=== PATIENT | female | born 1975 | race Caucasian/White ===

== ENCOUNTER 2017-05-12 09:48 | Emergency (ER) | payer OTHER ==
--- NOTE | 2017-05-12 10:17 | Emergency Department Record ---
History of Present Illness - General Chief Complaint: Fever Stated Complaint: FEVER POST OP Time Seen by Provider: 05/12/17 10:07 Source: Patient, RN notes reviewed Mode of Arrival: Wheelchair - History of Present Illness Initial Comments: lower abd pain and fever and feels nauseated and she had hysterectomy 6 days ago at [facility] by Dr. Carvalho. She called the office and they recommend she go to [facility]'s Ed and she felt like she was going to vomit and she came here. Carlos with her. PMH asthma Onset/Timin -: Hour(s) Maximum Temperature: 99.5 F Temperature Source: Oral Context: Recent procedure Associated Symptoms: Chills Treatments Prior to Arrival: Acetaminophen, Ibuprofen Treatment Prior to Arrival Comment:: 600mg motrin 0800 - Related Data Home Medications Medication Instructions Recorded Confirmed Last Taken Budesonide/Formoterol Fumarate 10.2 gm IH BID 04/13/15 05/12/17 05/12/17 [Symbicort 80-4.5 Mcg Inhaler] Montelukast Sodium [Singulair] 10 mg PO QHS 04/13/15 05/12/17 05/12/17 Hydrocodone/Acetaminophen [[place] 1 tab PO ASDIR PRN 05/12/17 05/12/17 05/12/17 04:00 5-325 Tablet] Allergies Allergy/AdvReac Type Severity Reaction Status Date / Time No Known Drug Allergies Allergy Verified 05/12/17 09:54 Travel Screening - Travel/Exposure Within Last 30 Days Have you traveled within the last 30 days?: No - Travel/Exposure Within Last Year Have you traveled outside the [place] in the last year?: No - Additonal Travel Details Have you been exposed to anyone with a communicable illness?: No - Travel Symptoms Symptom Screening: None Review of Systems Reviewed: No additional complaints except as noted below Constitutional: Reports: As per HPI, Fever. Denies: Chills, Malaise, Night sweats, Weakness, Weight change Eyes: Reports: As per HPI. Denies: Eye discharge, Eye pain, Photophobia, Vision change ENT: Reports: As per HPI. Denies: Congestion, Dental pain, Ear pain, Epistaxis , Hearing loss, Throat pain Respiratory: Reports: As per HPI. Denies: Cough, Dyspnea, Hemoptysis, Stridor, Wheezes Cardiovascular: Reports: As per HPI. Denies: Arrhythmia, Chest pain, Dyspnea on exertion, Edema, Murmurs, Orthopnea, Palpitations, Paroxysmal nocturnal dyspnea, Rheumatic Fever, Syncope Endocrine: Reports: As per HPI. Denies: Fatigue, Heat or cold intolerance, Polydipsia, Polyuria Gastrointestinal: Reports: As per HPI, Abdominal pain, Nausea. Denies: Constipation, Diarrhea, Hematemesis, Hematochezia, Melena, Vomiting Genitourinary: Reports: As per HPI. Denies: Abnormal menses, Discharge, Dyspareunia, Dysuria, Frequency, Hematuria, Incontinence, Retention, Urgency Musculoskeletal: Reports: As per HPI. Denies: Arthralgia, Back pain, Gout, Joint swelling, Myalgia, Neck pain Skin: Reports: As per HPI. Denies: Bruising, Change in color, Change in hair/ nails, Lesions, Pruritus, Rash Neurological: Reports: As per HPI. Denies: Abnormal gait, Confusion, Headache, Numbness, Paresthesias, Seizure, Tingling, Tremors, Vertigo, Weakness Psychiatric: Reports: As per HPI. Denies: Anxiety, Auditory hallucinations, Depression, Homicidal thoughts, Suicidal thoughts, Visual hallucinations Hematological/Lymphatic: Reports: As per HPI. Denies: Anemia, Blood Clots, Easy bleeding, Easy bruising, Swollen glands Past Medical History - SOCIAL HISTORY Smoking Status: Never smoker Alcohol Use: Rare Drug Use: None - RESPIRATORY Hx Respiratory Disorders: Yes Hx Asthma: Yes - CARDIOVASCULAR Hx Cardio Disorders: No - NEURO Hx Neuro Disorders: No - GI Hx GI Disorders: No - Hx Genitourinary Disorders: No - ENDOCRINE Hx Endocrine Disorders: No - MUSCULOSKELETAL Hx Musculoskeletal Disorders: No - PSYCH Hx Psych Problems: No - HEMATOLOGY/ONCOLOGY Hx Hematology/Oncology Disorders: No Family Medical History Any Significant Family History?: No Physical Exam - General General Appearance: Alert, Oriented x3, Cooperative, Mild distress - Head Head exam: Normal inspection - Eye Eye exam: Normal appearance, PERRL Pupils: Normal accommodation - ENT ENT exam: Normal exam, Mucous membranes moist, Normal external ear exam, Normal orophraynx, TM's normal bilaterally Ear exam: Normal external inspection. negative: External canal tenderness Nasal Exam: Normal inspection. negative: Discharge, Sinus tenderness Mouth exam: Normal external inspection, Tongue normal Teeth exam: Normal inspection. negative: Dental caries Throat exam: Normal inspection. negative: Tonsillar erythema, Tonsillar exudate - Neck Neck exam: Normal inspection, Full ROM. negative: Tenderness - Respiratory Respiratory exam: Normal lung sounds bilaterally. negative: Respiratory distress - Cardiovascular Cardiovascular Exam: Regular rate, Normal rhythm, Normal heart sounds - GI/Abdominal GI/Abdominal exam: Soft, Normal bowel sounds, Guarding, Tenderness (right lower quad pain and soft ). negative: Distended, Rebound, Rigid - Rectal Rectal exam: Deferred - exam: Deferred - Extremities Extremities exam: Normal inspection, Full ROM, Normal capillary refill. negative: Tenderness - Back Back exam: Reports: Normal inspection, Full ROM. Denies: Muscle spasm, Rash noted, Tenderness - Neurological Neurological exam: Alert, Normal gait, Oriented X3, Reflexes normal - Psychiatric Psychiatric exam: Normal affect, Normal mood - Skin Skin exam: Dry, Intact, Normal color, Warm Course Vital Signs 05/12/17 09:56 Temperature 101.4 F H Pulse Rate 96 H Respiratory 18 Rate Blood Pressure 128/69 Pulse Ox 969 H patient refused pelvix exam and I explained to her that is way we look for infection. Risks discussed and she said no. Medical Decision Making - Data Complexity MDM Data: Labs Ordered and/or Reviewed, X-Ray Ordered and/or Reviewed (CT showing stranding around the vaginal cuff) - Lab Data Result diagrams: 05/12/17 11:26 05/12/17 11:26 Disposition Clinical Impression: Abdominal pain Qualifiers: Abdominal location: right lower quadrant Qualified Code(s): R10.31 - Right lower quadrant pain Fever Qualifiers: Fever type: unspecified Qualified Code(s): R50.9 - Fever, unspecified Disposition: Home, Self-Care Forms: Patient Portal Access Quality - Quality Measures Quality Measures: N/A - Blood Pressure Screening Blood Pressure Classification: Pre-Hypertensive BP Reading Systolic Measurement: 128 Diastolic Measurement: 69 Screening for High Blood Pressure: < Pre-Hypertensive BP, F/U Documented > [ G8950] Pre-Hypertensive Follow-up Interventions: Follow-up with rescreen every year., Referral to alternative/primary care provider. Not Eligible Reason: Urgent or Emergent Situation
[2017-05-12] MEDS: ONDANSETRON HCL IV 4 MG/2 ML VIAL IV ONE (10:43)
[2017-05-12] MEDS: 0.9 % SODIUM CHLORIDE 1,000 ML BAG IV ONE (10:46)
[2017-05-12] MEDS: ACETAMINOPHEN 500 MG TABLET PO ONE (11:11)
[2017-05-12 11:32] LABS: HEMATOCRIT 41.7 % (35.0-47.0); HEMOGLOBIN 14.6 gm/dl (11.6-16.0); MEAN CELL VOLUME 89.5 fl (81-97); MEAN CORPUSCULAR HEMOGLOBIN 31.3 pg (27-33); MEAN PLATELET VOLUME 10.1 fl (7.4-10.4); PLATELET COUNT 242 K/uL (130-400); RED BLOOD COUNT 4.66 M/uL (3.80-5.40); RED CELL DISTRIBUTION WIDTH 11.6 % (11.5-14.5)
[2017-05-12 11:35] LABS: WHITE BLOOD COUNT W/O DIFF 22.1 K/uL (4.2-12.2)
[2017-05-12 11:43] LABS: PLATELET ESTIMATE NORMAL (NORMAL)
[2017-05-12 11:45] LABS: ALBUMIN 4.1 gm/dL (3.5-5.0); ALKALINE PHOSPHATASE 61 U/L (38-126); ALT/SGPT 40 U/L (9-52); ANION GAP 11.9 (7-16); AST/SGOT 23 U/L (14-36); BILIRUBIN,TOTAL 1.26 mg/dL (0.2-1.3); BLOOD UREA NITROGEN 17 mg/dL (7-17); CARBON DIOXIDE 24.1 mmol/L (22-30); CREATININE 0.6 mg/dL (0.52-1.04); EST GLOMERULAR FILTRATION RATE > 60 ml/min; GLUCOSE,RANDOM 105 mg/dL (70-110)
[2017-05-12 12:37] LABS: URINE APPEARANCE CLEAR; URINE BILIRUBIN NEGATIVE (NEGATIVE); URINE BLOOD SMALL (NEGATIVE); URINE COLOR YELLOW; URINE GLUCOSE (UA) NEGATIVE (NEGATIVE); URINE KETONE NEGATIVE (NEGATIVE); URINE LEUKOCYTE ESTERASE SMALL (NEGATIVE); URINE NITRITE NEGATIVE (NEGATIVE); URINE PROTEIN NEGATIVE (NEGATIVE); URINE UROBILINOGEN 0.2 E.U./dL (0.20 - 1.00)
[2017-05-12 12:47] LABS: URINE BACTERIA FEW
[2017-05-12] MEDS: KETOROLAC 30 MG/ML VIAL IVP ONE (13:16)
[2017-05-12] MEDS: ERTAPENEM SODIUM 1 G in 0.9 % SODIUM CHLORIDE 100ML 100 ML IVPB ONE (13:36)
--- NOTE | 2017-05-12 14:00 | Emergency Department Record ---
History of Present Illness - General Chief Complaint: Fever Stated Complaint: FEVER POST OP Time Seen by Provider: 05/12/17 10:07 Source: Patient, RN notes reviewed Mode of Arrival: Wheelchair - History of Present Illness Onset/Timin -: Hour(s) Maximum Temperature: 99.5 F Temperature Source: Oral Context: Recent procedure Associated Symptoms: Chills Treatments Prior to Arrival: Acetaminophen, Ibuprofen Treatment Prior to Arrival Comment:: 600mg motrin 0800 - Related Data Home Medications Medication Instructions Recorded Confirmed Last Taken Budesonide/Formoterol Fumarate 10.2 gm IH BID 04/13/15 05/12/17 05/12/17 [Symbicort 80-4.5 Mcg Inhaler] Montelukast Sodium [Singulair] 10 mg PO QHS 04/13/15 05/12/17 05/12/17 Hydrocodone/Acetaminophen [[place] 1 tab PO ASDIR PRN 05/12/17 05/12/17 05/12/17 04:00 5-325 Tablet] Allergies Allergy/AdvReac Type Severity Reaction Status Date / Time No Known Drug Allergies Allergy Verified 05/12/17 09:54 Travel Screening - Travel/Exposure Within Last 30 Days Have you traveled within the last 30 days?: No - Travel/Exposure Within Last Year Have you traveled outside the [place] in the last year?: No - Additonal Travel Details Have you been exposed to anyone with a communicable illness?: No - Travel Symptoms Symptom Screening: None Review of Systems Constitutional: Reports: As per HPI, Fever. Denies: Chills, Malaise, Night sweats, Weakness, Weight change Eyes: Reports: As per HPI. Denies: Eye discharge, Eye pain, Photophobia, Vision change ENT: Reports: As per HPI. Denies: Congestion, Dental pain, Ear pain, Epistaxis , Hearing loss, Throat pain Respiratory: Reports: As per HPI. Denies: Cough, Dyspnea, Hemoptysis, Stridor, Wheezes Cardiovascular: Reports: As per HPI. Denies: Arrhythmia, Chest pain, Dyspnea on exertion, Edema, Murmurs, Orthopnea, Palpitations, Paroxysmal nocturnal dyspnea, Rheumatic Fever, Syncope Endocrine: Reports: As per HPI. Denies: Fatigue, Heat or cold intolerance, Polydipsia, Polyuria Gastrointestinal: Reports: As per HPI, Abdominal pain, Nausea. Denies: Constipation, Diarrhea, Hematemesis, Hematochezia, Melena, Vomiting Genitourinary: Reports: As per HPI. Denies: Abnormal menses, Discharge, Dyspareunia, Dysuria, Frequency, Hematuria, Incontinence, Retention, Urgency Musculoskeletal: Reports: As per HPI. Denies: Arthralgia, Back pain, Gout, Joint swelling, Myalgia, Neck pain Skin: Reports: As per HPI. Denies: Bruising, Change in color, Change in hair/ nails, Lesions, Pruritus, Rash Neurological: Reports: As per HPI. Denies: Abnormal gait, Confusion, Headache, Numbness, Paresthesias, Seizure, Tingling, Tremors, Vertigo, Weakness Psychiatric: Reports: As per HPI. Denies: Anxiety, Auditory hallucinations, Depression, Homicidal thoughts, Suicidal thoughts, Visual hallucinations Hematological/Lymphatic: Reports: As per HPI. Denies: Anemia, Blood Clots, Easy bleeding, Easy bruising, Swollen glands Past Medical History - SOCIAL HISTORY Smoking Status: Never smoker Alcohol Use: Rare Drug Use: None - RESPIRATORY Hx Respiratory Disorders: Yes Hx Asthma: Yes - CARDIOVASCULAR Hx Cardio Disorders: No - NEURO Hx Neuro Disorders: No - GI Hx GI Disorders: No - Hx Genitourinary Disorders: No - ENDOCRINE Hx Endocrine Disorders: No - MUSCULOSKELETAL Hx Musculoskeletal Disorders: No - PSYCH Hx Psych Problems: No - HEMATOLOGY/ONCOLOGY Hx Hematology/Oncology Disorders: No Family Medical History Any Significant Family History?: No Course Vital Signs 05/12/17 05/12/17 05/12/17 09:56 12:00 12:24 Temperature 101.4 F H 99 F 101.4 F H Pulse Rate 96 H 96 H Pulse Rate [ 92 H Pulse Ox Probe] Respiratory 18 18 18 Rate Blood Pressure 128/69 128/69 Blood Pressure 108/60 [Right Arm] Pulse Ox 969 H 97 96 05/12/17 13:25 Temperature 99 F Pulse Rate Pulse Rate [ 81 Pulse Ox Probe] Respiratory 18 Rate Blood Pressure Blood Pressure 104/58 [Right Arm] Pulse Ox [address] Landa covering for Dr. Carvalho and will transfer to [facility]. Medical Decision Making - Lab Data Result diagrams: 05/12/17 11:26 05/12/17 11:26 Lab Results 07/12/17 07/12/17 07/12/17 Range/Units 11:26 11:26 12:30 WBC 22.1 H* (4.2-12.2) K/uL RBC 4.66 (3.80-5.40) M/uL Hgb 14.6 (11.6-16.0) gm/dl Hct 41.7 (35.0-47.0) % MCV 89.5 (81-97) fl MCH 31.3 (27-33) pg MCHC 35.0 (32-36) g/dl RDW 11.6 (11.5-14.5) % Plt Count 242 (130-400) K/uL MPV 10.1 (7.4-10.4) fl Neutrophils % 87.0 H (47-80) % Eosinophils % Not Reportable Basophils % Not Reportable Lymphocytes 6.0 L (16-45) % Monocytes 5.0 (0-9) % Platelet Estimate Normal (NORMAL) RBC Morphology Normal Eosinophil Count 2.0 (0-6) % Sodium 137 (136-145) mmol/L Potassium 4.3 (3.5-5.1) mmol/L Chloride 101 (98-107) mmol/L Carbon Dioxide 24.1 (22-30) mmol/L Anion Gap 11.9 (7-16) BUN 17 (7-17) mg/dL Creatinine 0.6 (0.52-1.04) mg/dL Estimated GFR > 60 ml/min Random Glucose 105 (70-110) mg/dL Calcium 8.8 (8.5-10.1) mg/dL Total Bilirubin 1.26 (0.2-1.3) mg/dL Direct Bilirubin 0.0 (0-0.3) mg/dL AST 23 (14-36) U/L ALT 40 (9-52) U/L Alkaline Phosphatase 61 (38-126) U/L Total Protein 7.0 (6.3-8.2) gm/dL Albumin 4.1 (3.5-5.0) gm/dL Urine Color Yellow Urine Appearance Clear Urine pH 6.5 (5.0-8.0) Ur Specific [place] 1.020 (1.002-1.030) Urine Protein Negative (NEGATIVE) Urine Glucose (UA) Negative (NEGATIVE) Urine Ketones Negative (NEGATIVE) Urine Blood Small H (NEGATIVE) Urine Nitrite Negative (NEGATIVE) Urine Bilirubin Negative (NEGATIVE) Urine Urobilinogen 0.2 (0.20 - 1.00) E.U./dL Ur Leukocyte Esterase Small H (NEGATIVE) Urine RBC 7 - 10 (NONE SEEN) Urine WBC 6 - 10 (0-2/hpf) Ur Epithelial Cells 10 - 15 (FEW) Urine Bacteria Few Disposition Clinical Impression: Postoperative fever Abdominal pain Qualifiers: Abdominal location: right lower quadrant Qualified Code(s): R10.31 - Right lower quadrant pain Fever Qualifiers: Fever type: unspecified Qualified Code(s): R50.9 - Fever, unspecified Disposition: Acute Care Hospital Transfer Condition: (1) Good Forms: Patient Portal Access Quality - Quality Measures Quality Measures: N/A - Blood Pressure Screening Blood Pressure Classification: Pre-Hypertensive BP Reading Systolic Measurement: 128 Diastolic Measurement: 69 Screening for High Blood Pressure: < Pre-Hypertensive BP, F/U Documented > [ G8950] Pre-Hypertensive Follow-up Interventions: Follow-up with rescreen every year.
[2017-05-12] MEDS: ONDANSETRON HCL IV 4 MG/2 ML VIAL IVP ONE (15:59)
--- NOTE | 2017-05-13 09:32 | CT SCAN REPORT ---
EXAM: CT OF THE ABDOMEN AND PELVIS WITHOUT CONTRAST HISTORY: ABDOMINAL PAIN. RECENT HYSTERECTOMY. TECHNIQUE: Helical CT examination of the abdomen and pelvis was performed without oral or intravenous contrast administration. Lack of oral and IV contrast utilization limits evaluation of the bowel and solid viscera respectively. Comparison: Same day two view chest radiographic examination. Ultrasound of the abdomen complete dated 09/21/12. FINDINGS: There is a tiny dependent right basilar pleural effusion. Patchy opacities in the dependent lung bases are identified consistent with atelectasis or less likely infiltrate. The heart is not enlarged and no pericardial effusion is seen. The liver, spleen, pancreas, adrenal glands, and left kidney are normal in appearance. A 2 mm nonobstructing calculus is present in the mid right kidney. There is a fat density cleft in the posteromedial mid right kidney versus tiny angiomyolipoma. This measures 2.5 mm in maximum diameter. A cystic structure previously suggested in the right kidney on prior ultrasound examination is not visualized with confidence. The gallbladder is likely surgically absent and no biliary ductal dilatation is seen. No intraabdominal nor retroperitoneal lymphadenopathy. No aneurysm of the abdominal aorta nor iliac arteries. The uterus is surgically absent. There is fat stranding adjacent to the vaginal cuff with trace free fluid. There is no walled off fluid collection nor suspicious extraluminal air. No intrinsic urinary bladder abnormality is seen. No gross bowel dilatation nor bowel wall thickening identified though evaluation is limited. The appendix is visualized and normal in appearance. No lytic or blastic bone lesion. There are mild degenerative changes of the lower lumbar spine. IMPRESSION: 1. SURGICALLY ABSENT UTERUS. MILD TO MODERATE FAT STRANDING AND TRACE FREE FLUID NEAR THE VAGINAL CUFF LIKELY RELATING TO EXPECTED RECENT POST SURGICAL CHANGE. SUPERIMPOSED INFECTION IS LESS LIKELY. NO EVIDENCE OF ABSCESS NOR EXTRALUMINAL AIR. 2. TINY DEPENDENT RIGHT PLEURAL EFFUSION. PATCHY OPACITIES IN THE DEPENDENT LUNG BASES CONSISTENT WITH ATELECTASIS OR LESS LIKELY INFILTRATE. 3. SURGICAL ABSENCE OF THE GALLBLADDER. 4. NONOBSTRUCTING CALCULUS IN THE RIGHT KIDNEY. TINY FAT DENSITY CLEFT VERSUS ANGIOMYOLIPOMA IN THE RIGHT MID KIDNEY. JOB NUMBER: [id number] [facility]
--- NOTE | 2017-05-13 09:36 | RADIOLOGY REPORT ---
EXAM: CHEST, TWO VIEWS HISTORY: ABDOMINAL PAIN AND FEVER. HYSTERECTOMY ON 05/06/17. TECHNIQUE: Upright PA and lateral views of the chest were obtained. Comparison: Same day CT of the abdomen and pelvis without contrast examination. Two view chest radiographic examination dated 01/12/09. FINDINGS: The heart is not enlarged and the pulmonary vasculature is nondilated. No lung consolidation is seen. Minimal patchy opacities, however, questioned in the posterior lung bases consistent with atelectasis or less likely infiltrate. No gross costophrenic angle blunting or pneumothorax. Minor levoconvex curvature of the upper thoracic spine. IMPRESSION: MINIMAL PATCHY OPACITY AT THE POSTERIOR LUNG BASE LEVEL CONSISTENT WITH ATELECTASIS OR LESS LIKELY INFILTRATE. JOB NUMBER: [id number] [facility]
== END 2017-05-12 16:06 | disposition short-term general hospital (02) ==
LOC: ER 09:48
DX: R50.82 Postprocedural fever (principal); R10.31 Right lower quadrant pain; R11.0 Nausea; Z90.710 Acquired absence of both cervix and uterus
CPT/HCPCS: 99285 ×2; 96376; 96374; 96375; 80076; 80048; 81001; 85027; 71020; 74176; J1335; J1885; J2405; J7030

== ENCOUNTER 2017-08-29 04:48 | Emergency (ER) | payer OTHER ==
[2017-08-29] MEDS ORDERED: HYOSCYAMINE SULFATE ODT 0.125 MG TAB.SUBL SL ONE (05:10)
--- NOTE | 2017-08-29 05:16 | Emergency Department Record ---
History of Present Illness - General Chief complaint: Nausea, Vomiting, Diarrhea Stated complaint: C-DIFF? Time Seen by Provider: 08/29/17 05:07 Source: Patient Mode of Arrival: Ambulatory Limitations: No limitations - History of Present Illness Initial comments: 41 yo female presents to ED for evaluation of abdominal "cramping" x 9 days and 48 hours of loose stools. Patient denies fevers, chills, or recent illness, denies antibiotic use since May following and infection after her hysterectomy. Patient denies health problems at her baseline. Patient does report undergoing CT imaging as a outpatient 3 days ago for her symptoms which was negative. MD complaint: Abdominal pain, Diarrhea Onset/Timin -: Days(s) Associated Abdominal Pain: Yes Radiation: LUQ, RUQ, LLQ, RLQ Severity: Moderate Quality: Cramping Consistency: Intermittent Improves with: None Worsens with: Eating Associated Symptoms: Nausea/vomiting - Related Data Allergies Allergy/AdvReac Type Severity Reaction Status Date / Time acetaminophen [From Vicodin] Allergy ALTERED Verified 08/29/17 04:54 MENTAL STATUS hydrocodone [From Vicodin] Allergy ALTERED Verified 08/29/17 04:54 MENTAL STATUS Travel Screening - Travel/Exposure Within Last 30 Days Have you traveled within the last 30 days?: No - Travel/Exposure Within Last Year Have you traveled outside the [place] in the last year?: No - Additonal Travel Details Have you been exposed to anyone with a communicable illness?: No - Travel Symptoms Symptom Screening: None Review of Systems Constitutional: Denies: Chills, Fever, Malaise, Night sweats Eyes: Denies: Eye discharge, Eye pain ENT: Denies: Congestion, Ear pain, Epistaxis Respiratory: Denies: Cough, Dyspnea Cardiovascular: Denies: Chest pain, Dyspnea on exertion Endocrine: Denies: Fatigue, Heat or cold intolerance Gastrointestinal: Reports: Abdominal pain, Diarrhea, Nausea. Denies: Constipation Genitourinary: Denies: Incontinence, Retention Musculoskeletal: Denies: Arthralgia, Back pain, Gout, Joint swelling Skin: Denies: Bruising, Change in color Neurological: Denies: Abnormal gait, Confusion, Headache, Seizure Psychiatric: Denies: Anxiety Hematological/Lymphatic: Denies: Anemia, Blood Clots Past Medical History - SOCIAL HISTORY Smoking Status: Never smoker Alcohol Use: None Drug Use: None - RESPIRATORY Hx Respiratory Disorders: Yes Hx Asthma: Yes - CARDIOVASCULAR Hx Cardio Disorders: No - NEURO Hx Neuro Disorders: No - GI Hx GI Disorders: No - Hx Genitourinary Disorders: No - ENDOCRINE Hx Endocrine Disorders: No - MUSCULOSKELETAL Hx Musculoskeletal Disorders: No - PSYCH Hx Psych Problems: No - HEMATOLOGY/ONCOLOGY Hx Hematology/Oncology Disorders: No Family Medical History Any Significant Family History?: No Physical Exam - General General Appearance: Alert, Oriented x3, Cooperative, Mild distress Limitations: No limitations - Head Head exam: Atraumatic, Normocephalic, Normal inspection Head exam detail: negative: Abrasion, Contusion, Weaver's sign, General tenderness, Hematoma, Laceration - Eye Eye exam: Normal appearance. negative: Conjunctival injection, Periorbital swelling, Periorbital tenderness, Scleral icterus - ENT Ear exam: negative: Auricular hematoma, Auricular trauma Nasal Exam: negative: Active bleeding, Discharge, Dried blood, Foreign body Mouth exam: negative: Drooling, Laceration, Tongue elevation - Neck Neck exam: Normal inspection. negative: Meningismus, Tenderness - Respiratory Respiratory exam: Normal lung sounds bilaterally. negative: Rales, Respiratory distress, Rhonchi, Stridor - Cardiovascular Cardiovascular Exam: Regular rate, Normal rhythm, Normal heart sounds - GI/Abdominal GI/Abdominal exam: Soft, Tenderness (Diffuse TTP on examination, no rebound, no guarding present). negative: Guarding, Rebound, Rigid - Rectal Rectal exam: Deferred - exam: Deferred - Extremities Extremities exam: Normal inspection. negative: Calf tenderness, Pedal edema, Tenderness - Back Back exam: Denies: CVA tenderness (R), CVA tenderness (L) - Neurological Neurological exam: Alert, Normal gait, Oriented X3 - Psychiatric Psychiatric exam: Normal affect, Normal mood - Skin Skin exam: Normal color. negative: Abrasion Type of lesion: negative: abrasion Course Vital Signs 08/29/17 04:55 Temperature 98.7 F Pulse Rate 67 Respiratory 16 Rate Blood Pressure 144/85 Pulse Ox 96 - Reevaluation(s) Reevaluation #1: 08/29/17 05:15 Previous records reviewed: CT Abdomen and Pelvis with IV/PO contrast 08/26/17: No acute process Normal appendix Reevaluation #2: 08/29/17 06:10 Labs reviewed and are grossly unremarkable for an acute process. C. Diff pending. Reevaluation #3: 08/29/17 06:16 Patient reassessed, reports improvement in her cramping symptoms following Levsin. Patient has been unable to provide stool sample as of yet, will continue to monitor. Reevaluation #4: 08/29/17 06:56 Patient is unable to provide stool sample at this time, will discharge home with a container to return with a sample for testing. Medical Decision Making - Lab Data Result diagrams: 08/29/17 05:21 08/29/17 05:21 Disposition Disposition: Discharge Clinical Impression: Abdominal pain Qualifiers: Abdominal location: unspecified location Qualified Code(s): R10.9 - Unspecified abdominal pain Disposition: Home, Self-Care Condition: (2) Stable Instructions: Abdominal Pain (ED) Additional Instructions: Return to ED if your symptoms worsen or if you have any concerns. Return with stool sample when available. Follow-up with your family doctor in 3-5 days as directed. Forms: Patient Portal Access Time of Disposition: 06:56 Quality - Quality Measures Quality Measures: N/A - Blood Pressure Screening Does Patient Have Any of the Following: No Blood Pressure Classification: Pre-Hypertensive BP Reading Systolic Measurement: 144 Diastolic Measurement: 85 Screening for High Blood Pressure: < Pre-Hypertensive BP, F/U Documented > [ G8950] Pre-Hypertensive Follow-up Interventions: Referral to alternative/primary care provider.
[2017-08-29 05:32] LABS: BASO % 1.3 % (0-6); EOS % 2.7 % (0-6); GRAN % 63.4 % (47-80); HEMATOCRIT 44.6 % (35.0-47.0); MEAN CELL VOLUME 86.4 fl (81-97); MEAN CORPUSCULAR HGB CONC 35.9 g/dl (32-36); MEAN PLATELET VOLUME 9.9 fl (7.4-10.4); MONO % 13.6 % (0-9); PLATELET COUNT 287 K/uL (130-400); RED BLOOD COUNT 5.16 M/uL (3.80-5.40); RED CELL DISTRIBUTION WIDTH 11.8 % (11.5-14.5); WHITE BLOOD COUNT W/O DIFF 6.3 K/uL (4.2-12.2)
[2017-08-29 06:03] LABS: ALB/GLOB RATIO 1.3 (1.1-1.8); ALBUMIN 3.9 g/dL (4.0-5.0); ALKALINE PHOSPHATASE 72 U/L (35-104); ALT/SGPT 22 U/L (<33); AST/SGOT 29 U/L (10.0-35.0); BLOOD UREA NITROGEN 12 mg/dL (6-20); CREATININE 0.7 mg/dL (0.5-0.9); EST GLOMERULAR FILTRATION RATE > 60 mL/min; GLUCOSE,RANDOM 123 mg/dL (74-109); LIPASE 26 U/L (13-60); TOTAL PROTEIN 6.8 g/dL (6.6-8.7)
== END 2017-08-29 06:58 | disposition home or self-care (01) ==
LOC: ER 04:48
DX: R10.84 Generalized abdominal pain (principal); R11.2 Nausea with vomiting, unspecified; R19.7 Diarrhea, unspecified
CPT/HCPCS: 99283 ×2; 83690; 85025; 80053; 87493; J1980

== ENCOUNTER 2017-11-13 20:50 | Emergency (ER) | payer BC, OTHER ==
[2017-11-13] MEDS ORDERED: PREDNISONE 20 MG TAB PO ONE (20:56)
[2017-11-13] MEDS ORDERED: IPRATROPIUM/ALBUTEROL (0.5MG/3MG) NEB INH ONE (20:56)
--- NOTE | 2017-11-13 21:00 | Emergency Department Record ---
History of Present Illness - General Chief Complaint: Asthma Stated Complaint: SOB Time Seen by Provider: 11/13/17 20:56 Source: Patient Mode of Arrival: Ambulatory Limitations: No limitations - History of Present Illness Initial Comments: 41 yo female presents to ED for evaluation of cough and difficulty breathing that began 1 week ago, worsened tonight. Patient reports that she has been recently treated for bronchitis with an antibiotic and cough suppressant, however her cough and wheezing symptoms worsened tonight. Patient denies fevers , chills, or productive cough symptoms. Patient reports using albuterol and pulmicort prior to arrival. MD Complaint: Shortness of breath Severity: Moderate Context: Recent URI Associated Symptoms: Dry cough Treatments Prior to Arrival: Inhaled bronchodilator - Related Data Previous Rx's Medication Instructions Recorded Albuterol Sulfate 0.083% [Neb] 3 ml NEB .EVERY 4-6 HOURS PRN #30 11/13/17 ml Prednisone [Prednisone 20Mg] 20 mg PO TID #12 tab 11/13/17 Allergies Allergy/AdvReac Type Severity Reaction Status Date / Time acetaminophen [From Vicodin] Allergy ALTERED Verified 08/29/17 04:54 MENTAL STATUS hydrocodone [From Vicodin] Allergy ALTERED Verified 08/29/17 04:54 MENTAL STATUS Review of Systems Constitutional: Denies: Chills, Fever, Malaise, Night sweats Eyes: Denies: Eye discharge, Eye pain ENT: Reports: Congestion. Denies: Ear pain, Epistaxis Respiratory: Reports: Cough, Dyspnea, Wheezes Cardiovascular: Denies: Chest pain, Dyspnea on exertion Endocrine: Denies: Fatigue, Heat or cold intolerance Gastrointestinal: Denies: Abdominal pain, Nausea, Vomiting Genitourinary: Denies: Incontinence, Retention Musculoskeletal: Denies: Arthralgia, Back pain Skin: Denies: Bruising, Change in color Neurological: Denies: Abnormal gait, Confusion, Headache, Seizure Psychiatric: Denies: Anxiety Hematological/Lymphatic: Denies: Anemia, Blood Clots Past Medical History - SOCIAL HISTORY Smoking Status: Never smoker Drug Use: None - RESPIRATORY Hx Respiratory Disorders: Yes Hx Asthma: Yes - CARDIOVASCULAR Hx Cardio Disorders: No - NEURO Hx Neuro Disorders: No - GI Hx GI Disorders: No - Hx Genitourinary Disorders: No - ENDOCRINE Hx Endocrine Disorders: No - MUSCULOSKELETAL Hx Musculoskeletal Disorders: No - PSYCH Hx Psych Problems: No - HEMATOLOGY/ONCOLOGY Hx Hematology/Oncology Disorders: No Physical Exam - General General Appearance: Alert, Oriented x3, Cooperative, Mild distress Limitations: No limitations - Head Head exam: Atraumatic, Normocephalic, Normal inspection Head exam detail: negative: Abrasion, Contusion, Weaver's sign, General tenderness, Hematoma, Laceration - Eye Eye exam: Normal appearance. negative: Conjunctival injection, Periorbital swelling, Periorbital tenderness, Scleral icterus - ENT Ear exam: negative: Auricular hematoma, Auricular trauma Nasal Exam: negative: Active bleeding, Discharge, Dried blood, Foreign body Mouth exam: negative: Drooling, Laceration, Muffled voice, Tongue elevation - Neck Neck exam: Normal inspection. negative: Meningismus, Tenderness - Respiratory Respiratory exam: Rhonchi, Wheezes. negative: Rales, Respiratory distress, Stridor - Cardiovascular Cardiovascular Exam: Regular rate, Normal rhythm, Normal heart sounds - GI/Abdominal GI/Abdominal exam: Soft. negative: Rebound, Rigid, Tenderness - Rectal Rectal exam: Deferred - exam: Deferred - Extremities Extremities exam: Normal inspection. negative: Calf tenderness, Pedal edema, Tenderness - Back Back exam: Denies: CVA tenderness (R), CVA tenderness (L) - Neurological Neurological exam: Alert, Normal gait, Oriented X3 - Psychiatric Psychiatric exam: Normal affect, Normal mood - Skin Skin exam: Normal color. negative: Abrasion Type of lesion: negative: abrasion Course Vital Signs 11/13/17 20:54 Temperature 97.7 F Pulse Rate [ 100 H Pulse Ox Probe] Respiratory 24 Rate Blood Pressure 157/83 [Left Arm] Pulse Ox 100 - Reevaluation(s) Reevaluation #1: 11/13/17 21:44 CXR: No acute process Patient was updated on all results, reports that she is feeling much better following duoneb and prednisone in ED. Patient's repeat BS are clear, and she appears stable for discharge at this time. Disposition Disposition: Discharge Clinical Impression: Bronchitis Disposition: Home, Self-Care Condition: (2) Stable Instructions: Acute Bronchitis (ED) Additional Instructions: Return to ED if your symptoms worsen or if you have any concerns. Prednisone and Albuterol as directed. Follow-up with your family doctor in 3-5 days as directed. Prescriptions: Albuterol Sulfate 0.083% [Neb] 3 ml NEB .EVERY 4-6 HOURS PRN #30 ml PRN Reason: Difficulty In Breathing Prednisone [Prednisone 20Mg] 20 mg PO TID #12 tab Forms: Patient Portal Access Time of Disposition: 21:46 Quality - Quality Measures Quality Measures: N/A - Blood Pressure Screening Does Patient Have Any of the Following: No Blood Pressure Classification: Pre-Hypertensive BP Reading Systolic Measurement: 153 Diastolic Measurement: 80 Screening for High Blood Pressure: < Pre-Hypertensive BP, F/U Documented > [ G8950] Pre-Hypertensive Follow-up Interventions: Referral to alternative/primary care provider.
--- NOTE | 2017-11-14 20:43 | RADIOLOGY REPORT ---
EXAM: CHEST 2 VIEWS HISTORY: DIFFICULTY BREATHING. TECHNIQUE: Frontal and lateral views of the chest were performed. FINDINGS: Heart size is normal. The lung prado are clear. The osseous structures are normal. IMPRESSION: NEGATIVE CHEST EXAMINATION. JOB NUMBER: [id number] MTDD
== END 2017-11-13 21:51 | disposition home or self-care (01) ==
LOC: ER 20:50
DX: J20.9 Acute bronchitis, unspecified (principal); R06.02 Shortness of breath
CPT/HCPCS: 99283; 99284; 71046; 94640; J7512

== ENCOUNTER 2019-08-02 06:26 | Emergency (ER) | payer BC ==
--- NOTE | 2019-08-02 07:12 | Emergency Department Record ---
History of Present Illness - General Chief complaint: Nausea, Vomiting, Diarrhea Stated complaint: DIARRHEA Time Seen by Provider: 08/02/19 07:03 Source: Patient, RN notes reviewed Mode of Arrival: Ambulatory - History of Present Illness Initial comments: patient has had diarrhea for 6 days and she is eating but having lots of stools and she said her last stool at 5 am had streaks of blood in the brown loose stools . Patient was seen in the ED 2 days ago and had a CT scan and she dropped off a stool yesterday and c diff negative rest of the culture pending. No one else in the family has diarrhea and two teenagers. No new meds and no travel history Onset/Timin -: Days(s) Description of Diarrhea: Blood-streaked, Water Location: Diffuse Radiation: None Severity: Moderate Severity scale (1-10): 6 Quality: Cramping Consistency: Intermittent Improves with: None Worsens with: None Associated Symptoms: Fever/chills, Headaches - Related Data Previous Rx's Medication Instructions Recorded Ondansetron [Zofran Odt] 4 mg SL .Q4-6H PRN #12 tab.rapdis 07/31/19 Dicyclomine HCl [Bentyl] 10 mg PO Q8H #20 cap 08/02/19 Allergies Allergy/AdvReac Type Severity Reaction Status Date / Time acetaminophen [From Vicodin] Allergy ALTERED Verified 08/02/19 06:51 MENTAL STATUS hydrocodone [From Vicodin] Allergy ALTERED Verified 08/02/19 06:51 MENTAL STATUS Travel Screening - Travel/Exposure Within Last 30 Days Have you traveled within the last 30 days?: No - Travel/Exposure Within Last Year Have you traveled outside the [place] in the last year?: No - Additonal Travel Details Have you been exposed to anyone with a communicable illness?: No Review of Systems Reviewed: No additional complaints except as noted below Constitutional: Reports: As per HPI. Denies: Chills, Fever, Malaise, Night sweats, Weakness, Weight change Eyes: Reports: As per HPI. Denies: Eye discharge, Eye pain, Photophobia, Vision change ENT: Reports: As per HPI. Denies: Congestion, Dental pain, Ear pain, Epistaxis, Hearing loss, Throat pain Respiratory: Reports: As per HPI. Denies: Cough, Dyspnea, Hemoptysis, Stridor, Wheezes Cardiovascular: Reports: As per HPI. Denies: Arrhythmia, Chest pain, Dyspnea on exertion, Edema, Murmurs, Orthopnea, Palpitations, Paroxysmal nocturnal dyspnea, Rheumatic Fever, Syncope Endocrine: Reports: As per HPI. Denies: Fatigue, Heat or cold intolerance, Polydipsia, Polyuria Gastrointestinal: Reports: As per HPI, Diarrhea. Denies: Abdominal pain, Constipation, Hematemesis, Hematochezia, Melena, Nausea, Vomiting Genitourinary: Reports: As per HPI. Denies: Abnormal menses, Discharge, Dyspareunia, Dysuria, Frequency, Hematuria, Incontinence, Retention, Urgency Musculoskeletal: Reports: As per HPI. Denies: Arthralgia, Back pain, Gout, Joint swelling, Myalgia, Neck pain Skin: Reports: As per HPI. Denies: Bruising, Change in color, Change in hair/nails, Lesions, Pruritus, Rash Neurological: Reports: As per HPI. Denies: Abnormal gait, Confusion, Headache, Numbness, Paresthesias, Seizure, Tingling, Tremors, Vertigo, Weakness Psychiatric: Reports: As per HPI. Denies: Anxiety, Auditory hallucinations, Depression, Homicidal thoughts, Suicidal thoughts, Visual hallucinations Hematological/Lymphatic: Reports: As per HPI. Denies: Anemia, Blood Clots, Easy bleeding, Easy bruising, Swollen glands Past Medical History - SOCIAL HISTORY Smoking Status: Never smoker Alcohol Use: None Drug Use: None - RESPIRATORY Hx Respiratory Disorders: Yes Hx Asthma: Yes - CARDIOVASCULAR Hx Cardio Disorders: No - NEURO Hx Neuro Disorders: No - GI Hx GI Disorders: No - Hx Genitourinary Disorders: No - ENDOCRINE Hx Endocrine Disorders: No - MUSCULOSKELETAL Hx Musculoskeletal Disorders: No - PSYCH Hx Psych Problems: No - HEMATOLOGY/ONCOLOGY Hx Hematology/Oncology Disorders: No Family Medical History Any Significant Family History?: Yes Family Hx Comment (NOT TO BE USED IN PLACE OF ITEMS BELOW): father has ibs Hx Cancer: Father, Mother Physical Exam - General General Appearance: Alert, Oriented x3, Cooperative, No acute distress - Head Head exam: Normal inspection - Eye Eye exam: Normal appearance, PERRL Pupils: Normal accommodation - ENT ENT exam: Normal exam, Mucous membranes moist, Normal external ear exam, Normal orophraynx, TM's normal bilaterally Ear exam: Normal external inspection. negative: External canal tenderness Nasal Exam: Normal inspection. negative: Discharge, Sinus tenderness Mouth exam: Normal external inspection, Tongue normal Teeth exam: Normal inspection. negative: Dental caries Throat exam: Normal inspection. negative: Tonsillar erythema, Tonsillar exudate - Neck Neck exam: Normal inspection, Full ROM. negative: Tenderness - Respiratory Respiratory exam: Normal lung sounds bilaterally. negative: Respiratory distress - Cardiovascular Cardiovascular Exam: Regular rate, Normal rhythm, Normal heart sounds - GI/Abdominal GI/Abdominal exam: Soft, Normal bowel sounds, Tenderness (right sided abd pain) - Rectal Rectal exam: Other (patient refused rectal exam to check for blood in her stool and will check her next stool for blood) - exam: Deferred - Extremities Extremities exam: Normal inspection, Full ROM, Normal capillary refill. negative: Tenderness - Back Back exam: Reports: Normal inspection, Full ROM. Denies: Muscle spasm, Rash noted, Tenderness - Neurological Neurological exam: Alert, Normal gait, Oriented X3, Reflexes normal - Psychiatric Psychiatric exam: Normal affect, Normal mood - Skin Skin exam: Dry, Intact, Normal color, Warm Course Vital Signs 08/02/19 06:31 Temperature 98 F Pulse Rate [ 75 Pulse Ox Probe] Respiratory 20 Rate Blood Pressure 124/68 [Left Arm] Pulse Ox 98 - Reevaluation(s) Reevaluation #1: feeling better 08/02/19 08:41 Medical Decision Making - Data Complexity MDM Data: Labs Ordered and/or Reviewed - Lab Data Result diagrams: 08/02/19 07:25 08/02/19 07:25 Disposition Clinical Impression: Diarrhea Qualifiers: Diarrhea type: unspecified type Qualified Code(s): R19.7 - Diarrhea, unspecified Disposition: Home, Self-Care Condition: (1) Good Instructions: Acute Diarrhea (ED) Additional Instructions: clear liquids and bland foods next 24 hours Prescriptions: Dicyclomine HCl [Bentyl] 10 mg PO Q8H #20 cap Forms: Patient Portal Access Time of Disposition: 07:42 Quality - Quality Measures Quality Measures: N/A - Blood Pressure Screening Does Patient Have Any of the Following: No Blood Pressure Classification: Pre-Hypertensive BP Reading Systolic Measurement: 124 Diastolic Measurement: 68 Screening for High Blood Pressure: < Pre-Hypertensive BP, F/U Documented > [G8950] Pre-Hypertensive Follow-up Interventions: Referral to alternative/primary care provider.
[2019-08-02] MEDS ORDERED: 0.9 % SODIUM CHLORIDE 1,000 ML BAG IV ONE (07:17)
[2019-08-02 07:34] LABS: ABSOLUTE NEUTROPHIL COUNT 5.99; HEMATOCRIT 41.2 % (35.0-47.0); HEMOGLOBIN 14.2 gm/dl (11.6-16.0); MEAN CORPUSCULAR HEMOGLOBIN 30.7 pg (27-33); MEAN CORPUSCULAR HGB CONC 34.5 g/dl (32-36); MEAN PLATELET VOLUME 10.2 fl (7.4-10.4); PLATELET COUNT 312 K/uL (130-400); RED BLOOD COUNT 4.63 M/uL (3.80-5.40); RED CELL DISTRIBUTION WIDTH 12.2 % (11.5-14.5); WHITE BLOOD COUNT W/O DIFF 8.2 K/uL (4.2-12.2)
[2019-08-02 07:44] LABS: PLATELET ESTIMATE NORMAL (NORMAL)
[2019-08-02 07:59] LABS: BLOOD UREA NITROGEN 8 mg/dL (6-20); CREATININE 0.6 mg/dL (0.5-0.9); EST GLOMERULAR FILTRATION RATE > 60 mL/min; LIPASE 23 U/L (13-60); TOTAL PROTEIN 6.3 g/dL (6.6-8.7)
[2019-08-02 08:01] LABS: GLUCOSE,RANDOM 104 mg/dL (74-109)
[2019-08-02 08:04] LABS: ALBUMIN 3.3 g/dL (4.0-5.0); ALKALINE PHOSPHATASE 60 U/L (35-104); ALT/SGPT 17 U/L (<33); AST/SGOT 29 U/L (10.0-35.0)
[2019-08-02 08:05] LABS: BILIRUBIN,DIRECT < 0.2 mg/dL (0-0.3)
== END 2019-08-02 09:28 | disposition home or self-care (01) ==
LOC: ER 06:26
DX: R19.7 Diarrhea, unspecified (principal); R11.2 Nausea with vomiting, unspecified
CPT/HCPCS: 80048; 80076; 83690; 85027; 99284; J7030